=== PATIENT | male | born 1950 | race Caucasian/White ===

== ENCOUNTER 2017-01-10 14:01 | Emergency (ER) | payer MEDICARE, OTHER | END 2017-01-10 17:59 | disposition home or self-care (01) | LOC: ER 14:01 | DX: R42 Dizziness and giddiness (principal); K85.90 Acute pancreatitis without necrosis or infection, unspecified; I10 Essential (primary) hypertension; G40.909 Epilepsy, unspecified, not intractable, without status epilepticus; B19.20 Unspecified viral hepatitis C without hepatic coma; F17.210 Nicotine dependence, cigarettes, uncomplicated; Z79.82 Long term (current) use of aspirin; Z79.899 Other long term (current) drug therapy; Z88.8 Allergy status to other drugs, medicaments and biological substances | CPT/HCPCS: 36415; 96360; G0480 ==